=== PATIENT | female | born 1935 | race Caucasian/White ===

== ENCOUNTER 2017-07-17 10:43 | Emergency (ER) | payer MEDICARE, BC ==
[2017-07-17] MEDS ORDERED: Albuterol/Ipratropium 3.0-0.5 MG/3 ML Neb Soln NEB ONE (11:18)
--- NOTE | 2017-07-17 11:43 | EDM.PDOC ---
ED HPI GENERAL MEDICAL PROBLEM - General Chief Complaint: Respiratory Problem Stated Complaint: BAD INFECTION COUGHING UP YELLOW STUFF [id number] Time Seen by Provider: 07/17/17 11:18 Source of Information: Reports: Patient History Limitations: Reports: No Limitations - History of Present Illness INITIAL COMMENTS - FREE TEXT/NARRATIVE: 82 yo white female c/o cough w/ yellow sputum w/ fever on Wednesday Onset Date: 07/12/17 Onset Time: 12:00 Duration: Day(s): Location: Reports: Chest Severity: Moderate Improves with: Reports: None Worsens with: Reports: None Associated Symptoms: Reports: cough w sputum (yellow sputum) Chest Pain Score (Numeric/FACES): 2 - Related Data Allergies Allergy/AdvReac Type Severity Reaction Status Date / Time Penicillins Allergy Cannot Verified 07/17/17 11:24 Remember Home Meds: Home Meds Citalopram [Celexa] 20 mg PO DAILY 07/17/17 [History] Pravastatin [Pravachol] 20 mg PO DAILY 07/17/17 [History] ED ROS GENERAL - Review of Systems Review Of Systems: See Below Constitutional: Reports: Fever, Chills HEENT: Reports: No Symptoms Respiratory: Reports: Cough, Sputum Cardiovascular: Reports: No Symptoms Endocrine: Reports: No Symptoms GI/Abdominal: Reports: No Symptoms : Reports: No Symptoms Musculoskeletal: Reports: No Symptoms Skin: Reports: No Symptoms Neurological: Reports: No Symptoms Psychiatric: Reports: No Symptoms Hematologic/Lymphatic: Reports: No Symptoms Immunologic: Reports: No Symptoms ED EXAM, GENERAL - Physical Exam Exam: See Below Exam Limited By: No Limitations General Appearance: Alert, No Apparent Distress Eye Exam: Bilateral Eye: PERRL Ears: Normal External Exam Nose: Normal Inspection Throat/Mouth: Normal Inspection Head: Atraumatic Neck: Normal Inspection Respiratory/Chest: No Respiratory Distress, Rhonchi (bilateral) Cardiovascular: Normal Peripheral Pulses, Regular Rate, Rhythm GI/Abdominal: Normal Bowel Sounds Back Exam: Normal Inspection, Full Range of Motion Extremities: Normal Inspection Neurological: Alert, Oriented, CN II-XII Intact Psychiatric: Normal Affect, Normal Mood Skin Exam: Warm, Dry Lymphatic: No Adenopathy Course - Vital Signs Last Recorded V/S: Last Vital Signs Temp 36.9 C 07/17/17 11:25 Pulse 80 07/17/17 11:36 Resp 18 07/17/17 11:25 BP 122/62 07/17/17 11:25 Pulse Ox 100 07/17/17 11:25 - Orders/Labs/Meds Orders: Active Orders 24 hr Category Date Time Status RT Aerosol Therapy [RC] ASDIRECTED Care 07/17/17 11:19 Active Labs: Laboratory Tests 07/17/17 07/17/17 Range/Units 12:39 12:39 WBC 9.9 (5.0-10.0) 10^3/uL RBC 4.62 (4.2-5.4) 10^6/uL Hgb 13.9 (12.0-16.0) g/dL Hct 41.4 (37.0-47.0) % MCV 89.6 (80-100) fL MCH 30.1 (27.0-34.0) pg MCHC 33.6 (33.0-35.0) g/dL Plt Count 212 (150-450) 10^3/uL Neut % (Auto) 66.8 (42.2-75.2) % Lymph % (Auto) 24.5 (20.5-50.1) % [place] % (Auto) 7.9 (2-8) % Eos % (Auto) 0.7 L (1.0-3.0) % Baso % (Auto) 0.1 (0.0-1.0) % Lactic Acid 2.0 (0.5-2.2) mmol/L Meds: Medications Discontinued Medications Generic Name Dose Route Start Last Admin Trade Name Freq PRN Reason Stop Dose Admin Albuterol/Ipratropium 3 ml 07/17/17 11:18 07/17/17 11:36 Duoneb 3.0-0.5 Mg/3 Ml NEB 07/17/17 11:19 3 ml ONETIME ONE Administration Departure - Departure Time of Disposition: 13:17 Disposition: Home, Self-Care 01 Condition: Good Clinical Impression: URI (upper respiratory infection) Qualifiers: URI type: unspecified viral URI Qualified Code(s): J06.9 - Acute upper respiratory infection, unspecified; B97.89 - Other viral agents as the cause of diseases classified elsewhere; B97.89 - Other viral agents as the cause of diseases classified elsewhere - Discharge Information Instructions: Upper Respiratory Infection, Adult, [id number] Forms: ED Department Discharge Additional Instructions: Increase intake of fluids ( Water / Juice) Try the Tessalon Perles 100mg TID to Supress cough Try using a vics vaporizer in bedroom at night F/U w/ PCP - My Orders Last 24 Hours: My Active Orders 07/17/17 11:19 RT Aerosol Therapy [RC] ASDIRECTED - Assessment/Plan Last 24 Hours: My Active Orders 07/17/17 11:19 RT Aerosol Therapy [RC] ASDIRECTED
== END 2017-07-17 13:27 | disposition home or self-care (01) ==
LOC: DL.ED 10:43
DX: J06.9 Acute upper respiratory infection, unspecified (principal); Z88.0 Allergy status to penicillin
CPT/HCPCS: 36415; 71020; 83605; 85025; 94640; 99283; 99284

== ENCOUNTER 2020-07-12 14:41 | Emergency (ER) | payer MEDICARE, BC ==
--- NOTE | 2020-07-12 15:46 | CR ---
PROCEDURE INFORMATION: Exam: XR Chest, 2 Views Exam date and time: 07/12/2020 3:35 PM Age: 85 years old Clinical indication: Shortness of breath TECHNIQUE: Imaging protocol: XR of the chest Views: 2 views. COMPARISON: CR Chest 2V 07/17/2017 11:21 AM FINDINGS: Lungs: Unremarkable. No consolidation. Pleural space: Unremarkable. No pleural effusion. No pneumothorax. Heart/Mediastinum: Unremarkable. No cardiomegaly. Bones/joints: Unremarkable. IMPRESSION: No acute findings.
[2020-07-12 15:51] LABS: ANION GAP 13.3 mEq/L (7-13); CHLORIDE,CL 102 mmol/L (98-107); SODIUM,NA 137 mmol/L (136-145)
--- NOTE | 2020-07-12 16:37 | EDM.PDOC ---
ED HPI GENERAL MEDICAL PROBLEM - General Chief Complaint: Respiratory Problem Stated Complaint: SHORTNESS OF BREATH Time Seen by Provider: 07/12/20 15:10 Source of Information: Reports: Patient, RN, RN Notes Reviewed History Limitations: Reports: No Limitations - History of Present Illness INITIAL COMMENTS - FREE TEXT/NARRATIVE: Patient presents to the ED via personal vehicle with complaints of shortness of breath. She states this symptoms has been ongoing for the past few weeks and progressively worsened. She relates she has no issue moving air, but feels as if she needs to breathe more quickly to keep herself oxygenated. She has not taken any medications for this problem. She denies chest pain, chest pressure, palpitations, cough, fever, shaking chills, or recent illness. She has not been exposed to anyone positive for COVID, and reports she lives a fairly isolated life with her as he has advanced Alzheimer disease. - Related Data Allergies Allergy/AdvReac Type Severity Reaction Status Date / Time Penicillins Allergy Cannot Verified 07/12/20 15:23 Remember Home Meds: Home Meds Citalopram [Celexa] 20 mg PO DAILY 07/17/17 [History] Pravastatin [Pravachol] 20 mg PO DAILY 07/17/17 [History] Past Medical History Cardiovascular History: Reports: High Cholesterol - Infectious Disease History Infectious Disease History: Reports: Chicken Pox, Measles, Mumps - Past Surgical History Female Surgical History: Reports: Breast Biopsy, Hysterectomy, Other (See Below) Other Female Surgeries/Procedures: L breast lumpecomy Social & Family History - Tobacco Use Smoking Status *Q: Never Smoker - Recreational Drug Use Recreational Drug Use: No ED ROS GENERAL - Review of Systems Review Of Systems: Comprehensive ROS is negative, except as noted in HPI. ED EXAM, GENERAL - Physical Exam Exam: See Below Exam Limited By: No Limitations General Appearance: Alert, WD/WN, No Apparent Distress Nose: Normal Inspection Throat/Mouth: Normal Inspection, Normal Voice, No Airway Compromise Head: Atraumatic, Normocephalic Neck: Normal Inspection, Supple, Non-Tender, Full Range of Motion Respiratory/Chest: No Accessory Muscle Use, Chest Non-Tender, Rales (Right lower lobe) Cardiovascular: Normal Peripheral Pulses, Regular Rate, Rhythm, No Edema, No Gallop, No Murmur, No Rub Extremities: Normal Range of Motion, Non-Tender, No Pedal Edema, Slow Capillary Refill (>3 seconds to all extremities) Neurological: Alert, Oriented, CN II-XII Intact, Normal Cognition, Normal Gait, No Motor/Sensory Deficits Skin Exam: Warm, Dry, Intact, Normal Color, Rash (Healing maculopapular rash to midline chest - treated by Dr. Peters in clinic earlier this week.) EKG INTERPRETATION EKG Date: 07/12/20 Time: 15:27 Rhythm: NSR Rate (Beats/Min): 78 [place]: Normal P-Wave: Present ST-T: Normal QT: Normal Comparison: NA - No Prior EKG EKG Interpretation Comments: No signs of acute ischemia. Normal EKG Course - Vital Signs Last Recorded V/S: Last Vital Signs Temp 97.7 F 07/12/20 15:04 Pulse 94 07/12/20 15:04 Resp 16 07/12/20 15:04 BP 135/70 07/12/20 15:04 Pulse Ox 100 07/12/20 15:04 - Orders/Labs/Meds Orders: Active Orders 24 hr Category Date Time Status EKG Documentation Completion [RC] STAT Care 07/12/20 15:15 Active Labs: Laboratory Tests 07/12/20 07/12/20 07/12/20 Range/Units 15:24 15:24 15:24 WBC 8.5 (5.0-10.0) 10^3/uL RBC 4.36 (4.2-5.4) 10^6/uL Hgb 13.2 (12.0-16.0) g/dL Hct 38.3 (37.0-47.0) % MCV 87.8 (80-100) fL MCH 30.3 (27.0-34.0) pg MCHC 34.5 (33.0-35.0) g/dL Plt Count 267 (150-450) 10^3/uL Neut % (Auto) 62.7 (42.2-75.2) % Lymph % (Auto) 27.7 (20.5-50.1) % [place] % (Auto) 7.9 (2-8) % Eos % (Auto) 1.3 (1.0-3.0) % Baso % (Auto) 0.4 (0.0-1.0) % D-Dimer, Quantitative 255 (0-400) ng/mL Sodium 137 (136-145) mmol/L Potassium 4.3 (3.5-5.1) mmol/L Chloride 102 (98-107) mmol/L Carbon Dioxide 26 (21-32) mmol/L Anion Gap 13.3 H (7-13) mEq/L BUN 12 (7-18) mg/dL Creatinine 0.83 (0.55-1.02) mg/dL Est Cr Clr Drug Dosing 41.74 mL/min Estimated GFR (MDRD) > 60 BUN/Creatinine Ratio 14.5 (No establ ref range) Glucose 96 (74-99) mg/dL Calcium 9.8 (8.5-10.1) mg/dL Total Bilirubin 0.6 (0.2-1.0) mg/dL AST 12 L (15-37) U/L ALT 19 (14-59) U/L Alkaline Phosphatase 90 (46-116) U/L Troponin I < 0.017 (0.000-0.056) ng/mL Total Protein 6.8 (6.4-8.2) g/dL Albumin 3.7 (3.4-5.0) g/dL Globulin 3.1 Albumin/Globulin Ratio 1.2 - Re-Assessments/Exams Free Text/Narrative Re-Assessment/Exam: 07/12/20 16:49 EKG, Chest XR, CBC, CMP, Troponin, and D-Dimer unremarkable. Patient counseled to switch antihistamines for rash as this may be contributing to her weakness/tiredness. Departure - Departure Time of Disposition: 16:51 Disposition: Home, Self-Care 01 Condition: Good Clinical Impression: Shortness of breath - Discharge Information *PRESCRIPTION DRUG MONITORING PROGRAM REVIEWED*: Not Applicable *COPY OF PRESCRIPTION DRUG MONITORING REPORT IN PATIENT [place]: Not Applicable Instructions: Shortness of Breath, Adult, [id number] Forms: ED Department Discharge Additional Instructions: Switch Zyrtec to a different antihistamine, such as Sussy or Claritin. Follow up with primary care provider early next week. Sepsis Event Note (ED) - Evaluation Sepsis Screening Result: No Definite Risk - Focused Exam Vital Signs: Vital Signs Temp Pulse Resp BP Pulse Ox 07/12/20 15:04 97.7 F 94 16 135/70 100 - My Orders Last 24 Hours: My Active Orders 07/12/20 15:15 EKG Documentation Completion [RC] STAT - Assessment/Plan Last 24 Hours: My Active Orders 07/12/20 15:15 EKG Documentation Completion [RC] STAT
== END 2020-07-12 17:00 | disposition home or self-care (01) ==
LOC: DL.ED 14:41
DX: R06.02 Shortness of breath (principal); E78.00 Pure hypercholesterolemia, unspecified; Z88.0 Allergy status to penicillin; Z79.899 Other long term (current) drug therapy
CPT/HCPCS: 36415; 71046; 80053; 84484; 85025; 85379; 93005; 99285-25

== ENCOUNTER 2025-03-22 14:27 | Emergency (ER) | payer MEDICARE, BC ==
[2025-03-22] MEDS: Lidocaine 1% 5 ML VIAL INJECT ONE (15:11)
[2025-03-22] MEDS ORDERED: Naloxone 2 MG/2 ML Syringe IVPUSH PRN (15:28)
[2025-03-22] MEDS: fentaNYL 100 MCG/2 ML SDV IVPUSH ONE (15:44)
[2025-03-22] MEDS: Diphtheria,Pertussis(Acell),Tetanus Vaccine 0.5 ML Syringe IM ONE (16:02)
== END 2025-03-22 16:08 | disposition home or self-care (01) ==
LOC: DL.ED 14:27
DX: S52.572A Other intraarticular fracture of lower end of left radius, initial encounter for closed fracture (principal); S61.011A Laceration without foreign body of right thumb without damage to nail, initial encounter; E78.00 Pure hypercholesterolemia, unspecified; Z90.710 Acquired absence of both cervix and uterus; Z88.0 Allergy status to penicillin; Z79.899 Other long term (current) drug therapy; Z23 Encounter for immunization; W01.198A Fall on same level from slipping, tripping and stumbling with subsequent striking against other object, initial encounter; Y92.019 Unspecified place in single-family (private) house as the place of occurrence of the external cause
CPT/HCPCS: 12001; 29125; 70450; 73110; 90471; 90715; 96374; 99284; J2003; J3010